=== PATIENT | male | born 1935 | race Caucasian/White ===

== ENCOUNTER 2016-07-01 10:45 | Inpatient (IN) | payer MEDICARE, BC ==
[2016-07-01] MEDS ORDERED: Sodium Chloride 0.9% 500 ML IV SCH (11:00)
--- NOTE | 2016-07-01 11:11 | EDM.PDOC ---
ED HPI GENERAL MEDICAL PROBLEM - General Chief Complaint: Neurological Problem Stated Complaint: POSSIBLE STROKE Time Seen by Provider: 07/01/16 11:11 Source of Information: Reports: Patient - History of Present Illness INITIAL COMMENTS - FREE TEXT/NARRATIVE: HISTORY AND PHYSICAL: History of present illness: [] Patient presents via ambulance with history of strokelike symptoms this morning Patient was last seen with normal baseline function at 6 PM last night, he went to bed and slept until 9 AM this morning, after getting up to go to the bathroom around 9:15 is noted to be generally weak requiring assistance with his home care manager, family and home care manager noted a difference in typewriter mechanic strength right greater than left on the upper extremities, as well as drooling out of the right corner of his mouth. On arrival to the ER strength is 5 out of 5 there is no drooling and patient appears to be at baseline outside of generalized weakness No fever nausea vomiting chills sweats no chest pain shortness breath headache dizziness or palpitation His family notes that he has had some delirium on a couple of episodes over the last week Previous history of stroke, and home care manager Family is considering fci placement Review of systems: As per history of present illness and below otherwise all systems reviewed and negative. Past medical history: As per history of present illness and as reviewed below otherwise noncontributory. Surgical history: As per history of present illness and as reviewed below otherwise noncontributory. Social history: No reported history of drug or alcohol abuse. Family history: As per history of present illness and as reviewed below otherwise noncontributory. Physical exam: HEENT: Atraumatic, normocephalic, pupils reactive, negative for conjunctival pallor or scleral icterus, mucous membranes moist, throat clear, neck supple, nontender, trachea midline. Lungs: Clear to auscultation, breath sounds equal bilaterally, chest nontender. Heart: S1S2, regular, negative for clicks, rubs, or JVD. Abdomen: Soft, nondistended, nontender. Negative for masses or hepatosplenomegaly. Negative for costovertebral tenderness. Pelvis: Stable nontender. Genitourinary: Deferred. Rectal: Deferred. Extremities: Atraumatic, negative for cords or calf pain. Neurovascular unremarkable. Neuro: Awake, alert, oriented. Cranial nerves II through XII unremarkable. Cerebellum unremarkable. Motor and sensory unremarkable throughout. Exam nonfocal. Diagnostics: [] Lab as below EKG Chest one view Head CT without contrast Therapeutics: [] 500 cc normal saline bolus Impression: [] Strokelike symptoms Chronic history of baseline Definitive disposition and diagnosis as appropriate pending reevaluation and review of above. - Related Data Allergies Allergy/AdvReac Type Severity Reaction Status Date / Time No Known Allergies Allergy Verified 07/01/16 10:55 Home Meds: Home Meds Aspirin 81 mg PO DAILY 01/12/16 [History] Enalapril Maleate 20 mg PO BID 01/12/16 [History] Hydrochlorothiazide 25 mg PO DAILY 01/12/16 [History] Metoprolol Tartrate 50 mg PO Q12H 01/12/16 [History] Multivitamins [Tab-A-Piero] 1 tab PO DAILY 01/12/16 [History] Simvastatin [Zocor] 10 mg PO BEDTIME 01/12/16 [History] levETIRAcetam [Keppra] 500 mg PO BID 01/12/16 [History] Past Medical History HEENT History: Reports: Hard of hearing Cardiovascular History: Reports: CAD, High cholesterol, Hypertension Respiratory History: Reports: None Gastrointestinal History: Reports: None Genitourinary History: Reports: None Musculoskeletal History: Reports: None Neurological History: Reports: CVA, Seizure Other Neuro History: 2 strokes. Most recent in 2010. Psychiatric History: Reports: None Endocrine/Metabolic History: Reports: None Dermatologic History: Reports: None - Infectious Disease History Infectious Disease History: Reports: Chicken pox, Measles, Shingles - Past Surgical History Cardiovascular Surgical History: Reports: Coronary artery bypass Social & Family History - Family History Family Medical History: Noncontributory - Tobacco Use Smoking Status *Q: Never Smoker Used Tobacco, but Quit: No Second Hand Smoke Exposure: Yes - Caffeine Use Caffeine Use: Reports: Coffee - Recreational Drug Use Recreational Drug Use: No ED ROS GENERAL - Review of Systems Review Of Systems: ROS reveals no pertinent complaints other than HPI. ED EXAM, GENERAL - Physical Exam Exam: See Below Course - Vital Signs Last Recorded V/S: Last Vital Signs Temp 36.1 C 07/01/16 10:56 Pulse 56 L 07/01/16 11:41 Resp 17 07/01/16 11:41 BP 127/61 07/01/16 11:41 Pulse Ox 98 07/01/16 11:41 - Orders/Labs/Meds Orders: Active Orders 24 hr Category Date Time Status Admission Diagnosis [ADT] Stat ADT 07/01/16 12:44 Ordered Chest 1V Frontal [CR] Stat Exams 07/01/16 10:56 Taken Head wo Cont [CT] Stat Exams 07/01/16 10:56 Taken Sodium Chloride 0.9% [Normal Saline] 500 ml Med 07/01/16 11:00 Active IV STAT Medication Orders Sodium Chloride (Normal Saline) 500 mls @ 999 mls/hr IV STAT BIANKA Last Admin: 07/01/16 11:44 Dose: 999 mls/hr Labs: Laboratory Tests 07/01/16 07/01/16 07/01/16 Range/Units 11:17 11:17 11:17 WBC 9.10 (4.0-11.0) K/uL RBC 4.66 (4.50-5.90) M/uL Hgb 14.4 (13.0-17.0) g/dL Hct 42.6 (38.0-50.0) % MCV 91.4 (80.0-98.0) fL MCH 30.9 (27.0-32.0) pg MCHC 33.8 (31.0-37.0) g/dL RDW Std Deviation 45.4 (28.0-62.0) fl RDW Coeff of Kera 14 (11.0-15.0) % Plt Count 134 L (150-400) K/uL MPV 9.50 (7.40-12.00) fL Neut % (Auto) 71.2 (48.0-80.0) % Lymph % (Auto) 16.2 (16.0-40.0) % [facility] % (Auto) 11.5 (0.0-15.0) % Eos % (Auto) 0.9 (0.0-7.0) % Baso % (Auto) 0.2 (0.0-1.5) % Neut # (Auto) 6.5 H (1.4-5.7) K/uL Lymph # (Auto) 1.5 (0.6-2.4) K/uL [facility] # (Auto) 1.1 H (0.0-0.8) K/uL Eos # (Auto) 0.1 (0.0-0.7) K/uL Baso # (Auto) 0.0 (0.0-0.1) K/uL Nucleated RBC % 0.0 /100WBC Nucleated RBCs # 0 K/uL INR 0.98 (0.86-1.11) Sodium 136 (136-146) mmol/L Potassium 4.7 (3.5-5.1) mmol/L Chloride 106 (98-110) mmol/L Carbon Dioxide 20 L (21-31) mmol/L BUN 27 H (6.0-23.0) mg/dL Creatinine 1.7 H (0.6-1.5) mg/dL Est Cr Clr Drug Dosing 34.92 mL/min Estimated GFR (MDRD) 38.7 ml/min Glucose 91 (60-110) mg/dL Calcium 9.9 (8.8-10.8) mg/dL Total Bilirubin 1.2 (0.1-1.5) mg/dL AST 20 (5-40) IU/L ALT 21 (8-54) IU/L Alkaline Phosphatase 63 (40-150) Troponin I (0.0-0.29) NG/ML Total Protein 6.8 (6.0-8.0) g/dL Albumin 4.5 (3.4-4.8) g/dL Globulin 2.3 (2.0-3.5) g/dL Albumin/Globulin Ratio 2.0 (1.3-2.8) Urine Color Urine Appearance Urine pH (5.0-8.0) Ur Specific [place] (1.001-1.035) Urine Protein (NEGATIVE) mg/dL Urine Glucose (UA) (NEGATIVE) mg/dL Urine Ketones (NEGATIVE) mg/dL Urine Occult Blood (NEGATIVE) Urine Nitrite (NEGATIVE) Urine Bilirubin (NEGATIVE) Urine Urobilinogen (<2.0) EU/dL Ur Leukocyte Esterase (NEGATIVE) Urine RBC (0-2/HPF) Urine WBC (0-5/HPF) Ur Epithelial Cells (NONE-FEW) Urine Bacteria (NEGATIVE) 07/01/16 07/01/16 Range/Units 11:17 11:30 WBC (4.0-11.0) K/uL RBC (4.50-5.90) M/uL Hgb (13.0-17.0) g/dL Hct (38.0-50.0) % MCV (80.0-98.0) fL MCH (27.0-32.0) pg MCHC (31.0-37.0) g/dL RDW Std Deviation (28.0-62.0) fl RDW Coeff of [place] (11.0-15.0) % Plt Count (150-400) K/uL MPV (7.40-12.00) fL Neut % (Auto) (48.0-80.0) % Lymph % (Auto) (16.0-40.0) % [facility] % (Auto) (0.0-15.0) % Eos % (Auto) (0.0-7.0) % Baso % (Auto) (0.0-1.5) % Neut # (Auto) (1.4-5.7) K/uL Lymph # (Auto) (0.6-2.4) K/uL [facility] # (Auto) (0.0-0.8) K/uL Eos # (Auto) (0.0-0.7) K/uL Baso # (Auto) (0.0-0.1) K/uL Nucleated RBC % /100WBC Nucleated RBCs # K/uL INR (0.86-1.11) Sodium (136-146) mmol/L Potassium (3.5-5.1) mmol/L Chloride (98-110) mmol/L Carbon Dioxide (21-31) mmol/L BUN (6.0-23.0) mg/dL Creatinine (0.6-1.5) mg/dL Est Cr Clr Drug Dosing mL/min Estimated GFR (MDRD) ml/min Glucose (60-110) mg/dL Calcium (8.8-10.8) mg/dL Total Bilirubin (0.1-1.5) mg/dL AST (5-40) IU/L ALT (8-54) IU/L Alkaline Phosphatase (40-150) Troponin I < 0.10 (0.0-0.29) NG/ML Total Protein (6.0-8.0) g/dL Albumin (3.4-4.8) g/dL Globulin (2.0-3.5) g/dL Albumin/Globulin Ratio (1.3-2.8) Urine Color YELLOW Urine Appearance HAZY Urine pH 6.0 (5.0-8.0) Ur Specific [place] 1.015 (1.001-1.035) Urine Protein NEGATIVE (NEGATIVE) mg/dL Urine Glucose (UA) NEGATIVE (NEGATIVE) mg/dL Urine Ketones NEGATIVE (NEGATIVE) mg/dL Urine Occult Blood LARGE H (NEGATIVE) Urine Nitrite NEGATIVE (NEGATIVE) Urine Bilirubin NEGATIVE (NEGATIVE) Urine Urobilinogen 0.2 (<2.0) EU/dL Ur Leukocyte Esterase NEGATIVE (NEGATIVE) Urine RBC 45-50 (0-2/HPF) Urine WBC 1-2 (0-5/HPF) Ur Epithelial Cells RARE (NONE-FEW) Urine Bacteria FEW (NEGATIVE) Meds: Medications Generic Name Dose Route Start Last Admin Trade Name Freq PRN Reason Stop Dose Admin Sodium Chloride 500 mls @ 999 mls/hr 07/01/16 11:00 07/01/16 11:44 Normal Saline IV 999 mls/hr STAT BIANKA Administration Departure - Departure Time of Disposition: 12:44 Disposition: Admitted As Inpatient 64 Condition: fair Clinical Impression: TIA (transient ischemic attack) Forms: ED Department Discharge - My Orders Last 24 Hours: My Active Orders 07/01/16 10:56 Chest 1V Frontal [CR] Stat Head wo Cont [CT] Stat 07/01/16 11:00 Sodium Chloride 0.9% [Normal Saline] 500 ml IV STAT 07/01/16 12:44 Admission Diagnosis [ADT] Stat - Assessment/Plan Last 24 Hours: My Active Orders 07/01/16 10:56 Chest 1V Frontal [CR] Stat Head wo Cont [CT] Stat 07/01/16 11:00 Sodium Chloride 0.9% [Normal Saline] 500 ml IV STAT 07/01/16 12:44 Admission Diagnosis [ADT] Stat
--- NOTE | 2016-07-01 13:18 | PCM.HP ---
H&P History of Present Illness - General Date of Service: 07/01/16 Admit Problem/Dx: Admission Diagnosis/Problem Admission Diagnosis/Problem TIA, Transient ischemic attack Source of Information: Patient, EMS, EMS notes reviewed History Limitations: Reports: Altered mental status, Other (hard of hearing) - History of Present Illness Initial Comments - Free Text/Narative: The patient is an 81-year-old gentleman who is presented to the emergency department with possible stroke and he is admitted today for inpatient management. The patient was noted be at his normal baseline 14 hours prior to presentation in the emergency department. The patient is somewhat of a poor historian therefore information has been taken from the emergency medical record and family members are not available. He was noted by the family members upon arousing the patient at 9 a.m. he was having difficulty with weakness and drooling of the right corner of his mouth. Patient has a history of prior stroke. Interestingly, ER reports that the patient had been hallucinating and had some delirium while at home. The patient today is not entirely sure why he is here other than saying that he has been feeling very weak. The patient has denied any pain. He has had no dizziness or lightheadedness. He is very hard of hearing. Apparently while at home his family members have been getting the patient up to walk every 2 hours and a been unable to do this today. The patient himself has no complaints today. Onset of Symptoms: Reports: unknown/unsure Symptom Onset Date: 06/30/16 Duration of Symptoms: Reports: Day(s):, Improving Location: Reports: generalized Quality: Denies: Ache, Burning Severity: mild Improves with: Reports: None Worsens with: Reports: None Context: Reports: sick contact Associated Symptoms: Reports: no other symptoms - Related Data Allergies/Adverse Reactions: Allergies Allergy/AdvReac Type Severity Reaction Status Date / Time No Known Allergies Allergy Verified 07/01/16 10:55 Home Medications: Home Meds Aspirin 81 mg PO DAILY 01/12/16 [History] Enalapril Maleate 20 mg PO BID 01/12/16 [History] Hydrochlorothiazide 25 mg PO DAILY 01/12/16 [History] Metoprolol Tartrate 50 mg PO Q12H 01/12/16 [History] Multivitamins [Tab-A-Piero] 1 tab PO DAILY 01/12/16 [History] Simvastatin [Zocor] 10 mg PO BEDTIME 01/12/16 [History] levETIRAcetam [Keppra] 500 mg PO BID 01/12/16 [History] Past Medical History HEENT History: Reports: Hard of hearing Cardiovascular History: Reports: Bypass, CAD, High cholesterol, Hypertension Respiratory History: Reports: None Gastrointestinal History: Reports: None Genitourinary History: Reports: None Musculoskeletal History: Reports: None Neurological History: Reports: CVA, Seizure Other Neuro History: 2 strokes. Most recent in 2010. Psychiatric History: Reports: None Endocrine/Metabolic History: Reports: None Dermatologic History: Reports: None - Infectious Disease History Infectious Disease History: Reports: Chicken pox, Measles, Shingles - Past Surgical History Cardiovascular Surgical History: Reports: Coronary artery bypass Social & Family History - Family History Family Medical History: Noncontributory - Tobacco Use Smoking Status *Q: Never Smoker Used Tobacco, but Quit: No Second Hand Smoke Exposure: Yes - Caffeine Use Caffeine Use: Reports: Coffee - Alcohol Use Alcohol Use History: No - Recreational Drug Use Recreational Drug Use: No H&P Review of Systems - Review of Systems: Review Of Systems: Unable To Obtain (poor historian) Exam - Exam Exam: See Below - Vital Signs Vital Signs: Last Vital Signs Temp 36.1 C 07/01/16 10:56 Pulse 56 L 07/01/16 11:41 Resp 17 07/01/16 11:41 BP 127/61 07/01/16 11:41 Pulse Ox 98 07/01/16 11:41 Weight: 82.9 kg - Exam Quality Assessment: supplemental oxygen General: oriented. No: alert HEENT: Conjunctiva clear, Pupils equal, Pupils reactive. No: Mucosa moist & pink Neck: supple, trachea midline Lungs: Clear to auscultation, Normal respiratory effort Cardiovascular: regular rate, regular rhythm Abdomen: normal bowel sounds, soft Extremities: normal inspection. No: edema Skin: warm, dry, intact Neurological: cranial nerves intact, strength equal bilateral. No: focal deficit Neuro Extensive - Mental Status: oriented x3, normal mood/affect, disorientation to time, nl response to commands, opens eyes to commands. No: alert Neuro Extensive - Motor, Sensory, Reflexes: CN II-XII intact. No: tongue deviation (L), tongue deviation (R), receptive aphasia, expressive aphasia Psychiatric: normal affect. No: alert - Patient Data Lab Results last 24 hrs: Laboratory Results - last 24 hr 07/01/16 07/01/16 07/01/16 Range/Units 11:17 11:17 11:17 WBC 9.10 (4.0-11.0) K/uL RBC 4.66 (4.50-5.90) M/uL Hgb 14.4 (13.0-17.0) g/dL Hct 42.6 (38.0-50.0) % MCV 91.4 (80.0-98.0) fL MCH 30.9 (27.0-32.0) pg MCHC 33.8 (31.0-37.0) g/dL RDW Std Deviation 45.4 (28.0-62.0) fl RDW Coeff of Kera 14 (11.0-15.0) % Plt Count 134 L (150-400) K/uL MPV 9.50 (7.40-12.00) fL Neut % (Auto) 71.2 (48.0-80.0) % Lymph % (Auto) 16.2 (16.0-40.0) % [place] % (Auto) 11.5 (0.0-15.0) % Eos % (Auto) 0.9 (0.0-7.0) % Baso % (Auto) 0.2 (0.0-1.5) % Neut # (Auto) 6.5 H (1.4-5.7) K/uL Lymph # (Auto) 1.5 (0.6-2.4) K/uL [place] # (Auto) 1.1 H (0.0-0.8) K/uL Eos # (Auto) 0.1 (0.0-0.7) K/uL Baso # (Auto) 0.0 (0.0-0.1) K/uL Nucleated RBC % 0.0 /100WBC Nucleated RBCs # 0 K/uL INR 0.98 (0.86-1.11) Sodium 136 (136-146) mmol/L Potassium 4.7 (3.5-5.1) mmol/L Chloride 106 (98-110) mmol/L Carbon Dioxide 20 L (21-31) mmol/L BUN 27 H (6.0-23.0) mg/dL Creatinine 1.7 H (0.6-1.5) mg/dL Est Cr Clr Drug Dosing 34.92 mL/min Estimated GFR (MDRD) 38.7 ml/min Glucose 91 (60-110) mg/dL Calcium 9.9 (8.8-10.8) mg/dL Total Bilirubin 1.2 (0.1-1.5) mg/dL AST 20 (5-40) IU/L ALT 21 (8-54) IU/L Alkaline Phosphatase 63 (40-150) Troponin I (0.0-0.29) NG/ML Total Protein 6.8 (6.0-8.0) g/dL Albumin 4.5 (3.4-4.8) g/dL Globulin 2.3 (2.0-3.5) g/dL Albumin/Globulin Ratio 2.0 (1.3-2.8) Urine Color Urine Appearance Urine pH (5.0-8.0) Ur Specific [place] (1.001-1.035) Urine Protein (NEGATIVE) mg/dL Urine Glucose (UA) (NEGATIVE) mg/dL Urine Ketones (NEGATIVE) mg/dL Urine Occult Blood (NEGATIVE) Urine Nitrite (NEGATIVE) Urine Bilirubin (NEGATIVE) Urine Urobilinogen (<2.0) EU/dL Ur Leukocyte Esterase (NEGATIVE) Urine RBC (0-2/HPF) Urine WBC (0-5/HPF) Ur Epithelial Cells (NONE-FEW) Urine Bacteria (NEGATIVE) 07/01/16 07/01/16 Range/Units 11:17 11:30 WBC (4.0-11.0) K/uL RBC (4.50-5.90) M/uL Hgb (13.0-17.0) g/dL Hct (38.0-50.0) % MCV (80.0-98.0) fL MCH (27.0-32.0) pg MCHC (31.0-37.0) g/dL RDW Std Deviation (28.0-62.0) fl RDW Coeff of Kera (11.0-15.0) % Plt Count (150-400) K/uL MPV (7.40-12.00) fL Neut % (Auto) (48.0-80.0) % Lymph % (Auto) (16.0-40.0) % [place] % (Auto) (0.0-15.0) % Eos % (Auto) (0.0-7.0) % Baso % (Auto) (0.0-1.5) % Neut # (Auto) (1.4-5.7) K/uL Lymph # (Auto) (0.6-2.4) K/uL [place] # (Auto) (0.0-0.8) K/uL Eos # (Auto) (0.0-0.7) K/uL Baso # (Auto) (0.0-0.1) K/uL Nucleated RBC % /100WBC Nucleated RBCs # K/uL INR (0.86-1.11) Sodium (136-146) mmol/L Potassium (3.5-5.1) mmol/L Chloride (98-110) mmol/L Carbon Dioxide (21-31) mmol/L BUN (6.0-23.0) mg/dL Creatinine (0.6-1.5) mg/dL Est Cr Clr Drug Dosing mL/min Estimated GFR (MDRD) ml/min Glucose (60-110) mg/dL Calcium (8.8-10.8) mg/dL Total Bilirubin (0.1-1.5) mg/dL AST (5-40) IU/L ALT (8-54) IU/L Alkaline Phosphatase (40-150) Troponin I < 0.10 (0.0-0.29) NG/ML Total Protein (6.0-8.0) g/dL Albumin (3.4-4.8) g/dL Globulin (2.0-3.5) g/dL Albumin/Globulin Ratio (1.3-2.8) Urine Color YELLOW Urine Appearance HAZY Urine pH 6.0 (5.0-8.0) Ur Specific [place] 1.015 (1.001-1.035) Urine Protein NEGATIVE (NEGATIVE) mg/dL Urine Glucose (UA) NEGATIVE (NEGATIVE) mg/dL Urine Ketones NEGATIVE (NEGATIVE) mg/dL Urine Occult Blood LARGE H (NEGATIVE) Urine Nitrite NEGATIVE (NEGATIVE) Urine Bilirubin NEGATIVE (NEGATIVE) Urine Urobilinogen 0.2 (<2.0) EU/dL Ur Leukocyte Esterase NEGATIVE (NEGATIVE) Urine RBC 45-50 (0-2/HPF) Urine WBC 1-2 (0-5/HPF) Ur Epithelial Cells RARE (NONE-FEW) Urine Bacteria FEW (NEGATIVE) Result Diagrams: 07/01/16 11:17 07/01/16 11:17 *Q Meaningful Use (ADM) - VTE *Q VTE Criteria *Q: VTE Mechanical Contraindications *Q: Confused Consciousness VTE Pharmacological Contraindications *Q: Renal Impairment - VTE Risk Assess *Q Each Risk Factor Represents 3 Points: Age 75 Years or Greater Total Score 3 Point Risk Factors: 3 Each Risk Factor Represents 5 Points: Stroke, Less than 1 Month Total Score 5 Point Risk Factors: 5 - Stroke *Q Stroke Criteria *Q: Thrombolytic/Fibrinolytic Contraindications Stroke *Q: Med/tx not indicated/need - AMI *Q AMI Criteria *Q: - Problem List (1) TIA (transient ischemic attack) SNOMED Code(s): 729653791, 649424580 ICD Code: G45.9 - TRANSIENT CEREBRAL ISCHEMIC ATTACK, UNSPECIFIED Status: Acute Priority: High Current Visit: Yes Qualifiers: Transient cerebral ischemia type: unspecified Qualified Code(s): G45.9 - Transient cerebral ischemic attack, unspecified (2) Gait instability SNOMED Code(s): 23331133, 522698213 ICD Code: R26.81 - UNSTEADINESS ON FEET Status: Chronic Priority: High Current Visit: Yes (3) Generalized weakness SNOMED Code(s): 60878082 ICD Code: R53.1 - WEAKNESS Status: Chronic Priority: High Current Visit : Yes (4) History of CVA (cerebrovascular accident) SNOMED Code(s): 342451961 ICD Code: Z86.73 - PRSNL HX OF TIA (TIA), AND CEREB INFRC W/O RESID DEFICITS Status: Chronic Priority: Medium Current Visit: Yes (5) Altered mental status SNOMED Code(s): 370522453 ICD Code: R41.82 - ALTERED MENTAL STATUS, UNSPECIFIED Status: Chronic Priority: Medium Current Visit: No Qualifiers: Altered mental status type: disorientation Qualified Code(s): R41.0 - Disorientation, unspecified (6) Acute worsening of stage 3 chronic kidney disease SNOMED Code(s): 894637512 ICD Code: N18.3 - CHRONIC KIDNEY DISEASE, STAGE 3 (MODERATE) Status: Chronic Priority: High Current Visit: Yes (7) Hematuria SNOMED Code(s): 78211549 ICD Code: R31.9 - HEMATURIA, UNSPECIFIED Status: Chronic Priority: Medium Current Visit: Yes Problem List Initiated/Reviewed/Updated: Yes Orders Last 24hrs: Active Orders 24 hr Category Date Time Status Admission Diagnosis [ADT] Stat ADT 07/01/16 12:44 Ordered Admission Status [Patient Status] [ADT] Stat ADT 07/01/16 12:45 Active Chest 1V Frontal [CR] Stat Exams 07/01/16 10:56 Taken Head wo Cont [CT] Stat Exams 07/01/16 10:56 Taken Sodium Chloride 0.9% [Normal Saline] 500 ml Med 07/01/16 11:00 Active IV STAT Medication Orders Sodium Chloride (Normal Saline) 500 mls @ 999 mls/hr IV STAT BIANKA Last Admin: 07/01/16 11:44 Dose: 999 mls/hr Assessment/Plan Comment:: Jul 01, 2016: The patient is an 81-year-old gentleman who will be admitted as an inpatient secondary to TIA as well as physical deconditioning with gait abnormality. The patient also has evidence of acute on chronic kidney disease which is going to influence his medications. Also is noted on emergency room laboratory studies to have thrombocytopenia with a mild decrease of the thrombocytes to 134,000. Patient was also noted to have hematuria with 40-50 RBCs per high-powered field. It's uncertain if this is new or chronic. Regardless is something should be followed very closely as an outpatient. He does have hematuria would like to avoid DVT prophylaxis with Lovenox or heparin. Mechanical SCDs will be recommended. It's uncertain what the patient's CODE STATUS is at this time however, he will be for now CODE STATUS one. Physical therapy will be ordered for the patient. I've also ordered further testing for the patient in the morning and the patient's treatment plan will be adjusted as conditions and information indicates.
[2016-07-01] MEDS ORDERED: Ondansetron 4 MG Tab.DIS PO PRN (13:36)
[2016-07-01] MEDS ORDERED: Temazepam 15 MG Cap PO PRN (13:36)
[2016-07-01] MEDS ORDERED: oxyCODONE 5 MG Tab PO PRN (13:36)
[2016-07-01] MEDS ORDERED: Acetaminophen 325 MG Tab PO PRN (13:36)
[2016-07-01] MEDS: Sodium Chloride 0.9% 1,000 ML IV SCH (14:31)
[2016-07-01] MEDS: Metoprolol Tartrate 50 MG Tab PO SCH (15:16)
--- NOTE | 2016-07-01 16:14 | CT ---
EXAM DATE: 07/01/16 PATIENT'S AGE: 81 Patient: CLARA TORRES Facility: [place], [place] Site . Site : 1935 Study: CT Head STROKE PROTOCOL [id number]/27/2017 11:11:42 AM Ordering Physician: Doctor Tavares Final Report: HISTORY: Weakness. TECHNIQUE: Noncontrast head CT. COMPARISON: 02/24/2016. FINDINGS: There is an area of encephalomalacia involving the right parietal lobe which is unchanged and likely relates to a remote infarct. Areas of white matter low attenuation are nonspecific but likely reflect sequelae of chronic small vessel ischemic changes as before. Areas of remote lacunar infarction are again noted involving the basal ganglia, unchanged. There is mild generalized cerebral and cerebellar volume loss. There is no acute ischemic infarct or acute intracranial hemorrhage. No mass effect or midline shift. Stable ventricular size. The mastoid air cells are clear. Paranasal sinuses are clear. No skull fracture. IMPRESSION: 1. No acute intracranial disease or significant change. 2. Area of chronic encephalomalacia involving the right parietal lobe likely relates to a remote infarct, unchanged. 3. Mild chronic small vessel ischemic changes and areas of remote lacunar infarction as before. 4. Report called and faxed on 07/01/2016 at 11:20 a.m. Dictated by Olayinka Mcginnis MD @ 07/01/2016 11:16:13 AM Dictated by: Olayinka Mcginnis MD @ 07/01/2016 11:16:55 (Electronic Signature) Report Signed by Proxy. YAO
--- NOTE | 2016-07-01 16:16 | CR ---
EXAM DATE: 07/01/16 PATIENT'S AGE: 81 Patient: CLARA TORRES Facility: [place], [place] Site . Site : 1935 Study: XRay Chest [id number]/27/2017 12:17:25 PM Ordering Physician: Doctor Tavares Final Report: INDICATION: Stroke Symptoms HISTORY: Stroke-like symptoms. COMPARISON: 02/24/2016. TECHNIQUE: Chest one-view portable upright. FINDINGS: Postoperative changes of a median sternotomy. There are low lung volumes. There is no acute airspace disease. Mild elevation of the dome of the right hemidiaphragm, stable. Heart size and pulmonary vasculature are normal. hr consultant leads overlie the patient. There are surgical clips in the left upper quadrant. IMPRESSION: Low lung volumes, but no acute airspace disease. Dictated by Joselo Gavin MD @ 07/01/2016 12:45:03 PM Dictated by: Joselo Gavin MD @ 07/01/2016 12:45:09 (Electronic Signature) Report Signed by Proxy. [facility]Prince
[2016-07-01] MEDS: levETIRAcetam 500 MG Tab PO SCH (20:51)
[2016-07-02] MEDS: Metoprolol Tartrate 50 MG Tab PO SCH ×2 (00:51→13:46)
[2016-07-02] MEDS: Sodium Chloride 0.9% 1,000 ML IV SCH ×2 (03:15→16:34)
[2016-07-02] MEDS: Hydrochlorothiazide 25 MG Tab PO SCH (09:43)
[2016-07-02] MEDS: Aspirin 81 MG Tab.Chew PO SCH (09:43)
[2016-07-02] MEDS: levETIRAcetam 500 MG Tab PO SCH ×2 (10:40→20:42)
--- NOTE | 2016-07-02 11:09 | PCM.PN ---
<Phillip Horta - Last Filed: 07/02/16 11:05> - General Info Date of Service: 07/02/16 Admission Dx/Problem (Free Text): Admission Diagnosis/Problem Admission Diagnosis/Problem TIA, Transient ischemic attack Subjective Update: Patient is doing well. He passed his swallow evaluation this morning he can have his diet advanced. The patient reports no pain or other concerns this morning. He seems to be resting comfortably. Functional Status: Reports: pain controlled, tolerating diet - Review of Systems General: Reports: No Symptoms HEENT: Reports: no symptoms Pulmonary: Reports: no symptoms Cardiovascular: Reports: No Symptoms Gastrointestinal: Reports: No symptoms Genitourinary: Reports: no symptoms Musculoskeletal: Reports: no symptoms Skin: Reports: no symptoms Neurological: Reports: Difficulty Walking, Weakness Psychiatric: Reports: no symptoms - Patient Data Vitals - most recent: Last Vital Signs Temp 97.0 F 07/02/16 07:52 Pulse 60 07/02/16 07:52 Resp 16 07/02/16 07:52 BP 133/63 07/02/16 09:43 Pulse Ox 97 07/02/16 07:52 Weight - most recent: 71 kg I&O - last 24 hours: Intake & Output 07/01/16 07/02/16 07/02/16 22:59 06:59 14:59 Intake Total 188 1188 Output Total 600 670 Balance -412 518 Lab Results last 24 hrs: Laboratory Results - last 24 hr 07/02/16 07/02/16 Range/Units 04:42 04:42 WBC 8.26 (4.0-11.0) K/uL RBC 4.54 (4.50-5.90) M/uL Hgb 14.3 (13.0-17.0) g/dL Hct 41.1 (38.0-50.0) % MCV 90.5 (80.0-98.0) fL MCH 31.5 (27.0-32.0) pg MCHC 34.8 (31.0-37.0) g/dL RDW Std Deviation 43.2 (28.0-62.0) fl RDW Coeff of Kera 14 (11.0-15.0) % Plt Count 102 L (150-400) K/uL MPV 9.80 (7.40-12.00) fL Add Manual Diff YES Neutrophils % (Manual) 59 (48.0-80.0) % Lymphocytes % (Manual) 22 (16.0-40.0) % Monocytes % (Manual) 18 H (0.0-15.0) % Metamyelocytes % 1 % Absolute Seg Neuts 4.9 Lymphocytes # (Manual) 1.8 Monocytes # (Manual) 1.5 Absolute Metamyelocyte 0.1 Sodium 137 (136-146) mmol/L Potassium 5.1 (3.5-5.1) mmol/L Chloride 108 (98-110) mmol/L Carbon Dioxide 18 L (21-31) mmol/L BUN 21 (6.0-23.0) mg/dL Creatinine 1.3 (0.6-1.5) mg/dL Est Cr Clr Drug Dosing 43.24 mL/min Estimated GFR (MDRD) 52.7 ml/min Glucose 81 (60-110) mg/dL Calcium 9.6 (8.8-10.8) mg/dL Phosphorus 3.5 (2.4-4.7) mg/dL Magnesium 2.1 (1.5-2.3) mEq/L Total Bilirubin 1.5 (0.1-1.5) mg/dL AST 30 (5-40) IU/L ALT 21 (8-54) IU/L Alkaline Phosphatase 57 (40-150) Total Protein 6.7 (6.0-8.0) g/dL Albumin 4.2 (3.4-4.8) g/dL Globulin 2.5 (2.0-3.5) g/dL Albumin/Globulin Ratio 1.7 (1.3-2.8) Med Orders - Current: Current Medications Acetaminophen (Tylenol) 650 mg PO Q4H PRN PRN Reason: Pain (Mild 1-3)/fever Aspirin (Aspirin) 81 mg PO DAILY [facility] Last Admin: 07/02/16 09:43 Dose: 81 mg Enalapril Maleate (Vasotec) 20 mg PO BID [facility] Last Admin: 07/02/16 09:43 Dose: 20 mg Hydrochlorothiazide (Hydrochlorothiazide) 25 mg PO DAILY [facility] Last Admin: 07/02/16 09:43 Dose: 25 mg Sodium Chloride (Normal Saline) 500 mls @ 999 mls/hr IV STAT [facility] Last Admin: 04/27/17 11:44 Dose: 999 mls/hr Sodium Chloride (Normal Saline) 1,000 mls @ 75 mls/hr IV ASDIRECTED [facility] Last Admin: 07/02/16 03:15 Dose: 75 mls/hr Levetiracetam (Keppra) 500 mg PO BID [facility] Last Admin: 07/02/16 10:40 Dose: 500 mg Metoprolol Tartrate (Lopressor) 50 mg PO Q12H [facility] Last Admin: 07/02/16 00:51 Dose: 50 mg Ondansetron HCl (Zofran Odt) 4 mg PO Q4H PRN PRN Reason: nausea, able to take PO Oxycodone HCl (Oxycodone) 5 mg PO Q4H PRN PRN Reason: Pain (moderate 4-6) Pneumococcal Polyvalent Vaccine (Pneumovax 23) 0.5 ml IM .ONCE ONE Stop: 07/08/16 00:00 Temazepam (Restoril) 15 mg PO BEDTIME PRN PRN Reason: Sleep - Exam Quality Assessment: DVT prophylaxis (scd's) General: alert, cooperative, no acute distress, other (Resting comfortably in bed) Lungs: Clear to auscultation, Normal respiratory effort Cardiovascular: Regular Rate, Regular Rhythm Abdomen: bowel sounds present, soft, no tenderness, no distension Extremities: no edema, no calf tenderness Peripheral Pulses: 2+: radial (L), radial (R) Skin: warm, dry, intact Neurological: no new focal deficit Psy/Mental Status: alert - Problem List & Annotations (1) TIA (transient ischemic attack) SNOMED Code(s): 922425304, 678719485 Code(s): G45.9 - TRANSIENT CEREBRAL ISCHEMIC ATTACK, UNSPECIFIED Status: Acute Priority: High Current Visit: Yes Qualifiers: Transient cerebral ischemia type: unspecified Qualified Code(s): G45.9 - Transient cerebral ischemic attack, unspecified (2) Hematuria SNOMED Code(s): 74006508 Code(s): R31.9 - HEMATURIA, UNSPECIFIED Status: Chronic Priority: Medium Current Visit: Yes - Problem List Review Problem List Initiated/Reviewed/Updated: Yes - My Orders Last 24 Hours: My Active Orders 07/01/16 14:16 Consult to Physical Therapy [PT Evaluation and Treatment] [CONS] Routine - Plan Plan:: #1. TIA: -Head CT and chest x-ray were unremarkable. -Patient passed his swallow evaluation and will have his diet advanced to regular diet. -No new neurological deficits appreciated. #2. Acute on chronic kidney disease: -BUN and creatinine have returned within normal limits. #3. Hematuria: -This will need to be followed up as an outpatient. Social work is working on getting the patient to [facility] on July 05, 2016. <CindaJustin cancino M - Last Filed: 07/02/16 15:54> - General Info Admission Dx/Problem (Free Text): I was present with the resident during history and examination. I discussed the case with the resident and agree with the findings and plan as documented in the residents note. - Patient Data Vitals - most recent: Last Vital Signs Temp 36.2 C 07/02/16 11:56 Pulse 58 L 07/02/16 13:46 Resp 18 07/02/16 11:56 BP 142/75 H 07/02/16 11:56 Pulse Ox 98 07/02/16 11:56 I&O - last 24 hours: Intake & Output 07/02/16 07/02/16 07/02/16 06:59 14:59 22:59 Intake Total 1188 Output Total 670 Balance 518 Lab Results last 24 hrs: Laboratory Results - last 24 hr 07/02/16 07/02/16 Range/Units 04:42 04:42 WBC 8.26 (4.0-11.0) K/uL RBC 4.54 (4.50-5.90) M/uL Hgb 14.3 (13.0-17.0) g/dL Hct 41.1 (38.0-50.0) % MCV 90.5 (80.0-98.0) fL MCH 31.5 (27.0-32.0) pg MCHC 34.8 (31.0-37.0) g/dL RDW Std Deviation 43.2 (28.0-62.0) fl RDW Coeff of Kera 14 (11.0-15.0) % Plt Count 102 L (150-400) K/uL MPV 9.80 (7.40-12.00) fL Add Manual Diff YES Neutrophils % (Manual) 59 (48.0-80.0) % Lymphocytes % (Manual) 22 (16.0-40.0) % Monocytes % (Manual) 18 H (0.0-15.0) % Metamyelocytes % 1 % Absolute Seg Neuts 4.9 Lymphocytes # (Manual) 1.8 Monocytes # (Manual) 1.5 Absolute Metamyelocyte 0.1 Sodium 137 (136-146) mmol/L Potassium 5.1 (3.5-5.1) mmol/L Chloride 108 (98-110) mmol/L Carbon Dioxide 18 L (21-31) mmol/L BUN 21 (6.0-23.0) mg/dL Creatinine 1.3 (0.6-1.5) mg/dL Est Cr Clr Drug Dosing 43.24 mL/min Estimated GFR (MDRD) 52.7 ml/min Glucose 81 (60-110) mg/dL Calcium 9.6 (8.8-10.8) mg/dL Phosphorus 3.5 (2.4-4.7) mg/dL Magnesium 2.1 (1.5-2.3) mEq/L Total Bilirubin 1.5 (0.1-1.5) mg/dL AST 30 (5-40) IU/L ALT 21 (8-54) IU/L Alkaline Phosphatase 57 (40-150) Total Protein 6.7 (6.0-8.0) g/dL Albumin 4.2 (3.4-4.8) g/dL Globulin 2.5 (2.0-3.5) g/dL Albumin/Globulin Ratio 1.7 (1.3-2.8) Med Orders - Current: Current Medications Acetaminophen (Tylenol) 650 mg PO Q4H PRN PRN Reason: Pain (Mild 1-3)/fever Aspirin (Aspirin) 81 mg PO DAILY [facility] Last Admin: 07/02/16 09:43 Dose: 81 mg Enalapril Maleate (Vasotec) 20 mg PO BID [facility] Last Admin: 07/02/16 09:43 Dose: 20 mg Hydrochlorothiazide (Hydrochlorothiazide) 25 mg PO DAILY [facility] Last Admin: 07/02/16 09:43 Dose: 25 mg Sodium Chloride (Normal Saline) 500 mls @ 999 mls/hr IV STAT [facility] Last Admin: 07/01/16 11:44 Dose: 999 mls/hr Sodium Chloride (Normal Saline) 1,000 mls @ 75 mls/hr IV ASDIRECTED [facility] Last Admin: 07/02/16 03:15 Dose: 75 mls/hr Levetiracetam (Keppra) 500 mg PO BID [facility] Last Admin: 07/02/16 10:40 Dose: 500 mg Metoprolol Tartrate (Lopressor) 50 mg PO Q12H [facility] Last Admin: 07/02/16 13:46 Dose: Not Given Ondansetron HCl (Zofran Odt) 4 mg PO Q4H PRN PRN Reason: nausea, able to take PO Oxycodone HCl (Oxycodone) 5 mg PO Q4H PRN PRN Reason: Pain (moderate 4-6) Pneumococcal Polyvalent Vaccine (Pneumovax 23) 0.5 ml IM .ONCE ONE Stop: 07/08/16 00:00 Temazepam (Restoril) 15 mg PO BEDTIME PRN PRN Reason: Sleep - Problem List & Annotations (1) TIA (transient ischemic attack) SNOMED Code(s): 680623767, 291943731 Code(s): G45.9 - TRANSIENT CEREBRAL ISCHEMIC ATTACK, UNSPECIFIED Status: Acute Priority: High Current Visit: Yes Qualifiers: Transient cerebral ischemia type: unspecified Qualified Code(s): G45.9 - Transient cerebral ischemic attack, unspecified (2) Gait instability SNOMED Code(s): 73639684, 592850035 Code(s): R26.81 - UNSTEADINESS ON FEET Status: Chronic Priority: High Current Visit: Yes (3) Generalized weakness SNOMED Code(s): 36224306 Code(s): R53.1 - WEAKNESS Status: Chronic Priority: High Current Visit : Yes (4) History of CVA (cerebrovascular accident) SNOMED Code(s): 487843122 Code(s): Z86.73 - PRSNL HX OF TIA (TIA), AND CEREB INFRC W/O RESID DEFICITS Status: Chronic Priority: Medium Current Visit: Yes (5) Altered mental status SNOMED Code(s): 756937016 Code(s): R41.82 - ALTERED MENTAL STATUS, UNSPECIFIED Status: Chronic Priority: Medium Current Visit: No Qualifiers: Altered mental status type: disorientation Qualified Code(s): R41.0 - Disorientation, unspecified (6) Acute worsening of stage 3 chronic kidney disease SNOMED Code(s): 988703681 Code(s): N18.3 - CHRONIC KIDNEY DISEASE, STAGE 3 (MODERATE) Status: Chronic Priority: High Current Visit: Yes (7) Hematuria SNOMED Code(s): 62654286 Code(s): R31.9 - HEMATURIA, UNSPECIFIED Status: Chronic Priority: Medium Current Visit: Yes
[2016-07-03] MEDS: Metoprolol Tartrate 50 MG Tab PO SCH ×2 (01:54→12:49)
[2016-07-03] MEDS: Sodium Chloride 0.9% 1,000 ML IV SCH ×2 (07:14→21:46)
[2016-07-03 07:34] LABS: CHLORIDE,CL 108 mmol/L (98-110); SODIUM,NA 137 mmol/L (136-146)
[2016-07-03] MEDS: Hydrochlorothiazide 25 MG Tab PO SCH (08:36)
[2016-07-03] MEDS: levETIRAcetam 500 MG Tab PO SCH ×2 (08:36→20:25)
[2016-07-03] MEDS: Aspirin 81 MG Tab.Chew PO SCH (08:36)
[2016-07-03] MEDS ORDERED: Carboxymethylcellulose Sodium 0.5% Ophth Soln 0.4 ML UD Box of 30 EYERT SCH (14:15)
--- NOTE | 2016-07-03 14:55 | PCM.PN ---
- General Info Date of Service: 07/03/16 Admission Dx/Problem (Free Text): the patient was admitted or transient ischemic attack and worsening of his physical condition Subjective Update: Patient is doing well. He passed his swallow evaluation this morning he can have his diet advanced. The patient reports no pain or other concerns this morning. He seems to be resting comfortably. Functional Status: Reports: pain controlled, tolerating diet - Review of Systems General: Reports: Weakness, Fatigue HEENT: Reports: eye pain (dry eyes) Pulmonary: Reports: no symptoms Cardiovascular: Reports: No Symptoms Gastrointestinal: Reports: No symptoms Genitourinary: Reports: no symptoms Musculoskeletal: Reports: no symptoms Skin: Reports: no symptoms Neurological: Reports: Pre-Existing Deficit, Difficulty Walking, Weakness Psychiatric: Reports: no symptoms - Patient Data Vitals - most recent: Last Vital Signs Temp 36.2 C 07/03/16 12:00 Pulse 70 07/03/16 12:49 Resp 20 07/03/16 12:00 BP 145/80 H 07/03/16 12:49 Pulse Ox 99 07/03/16 12:00 Weight - most recent: 71 kg I&O - last 24 hours: Intake & Output 07/02/16 07/03/16 07/03/16 22:59 06:59 14:59 Intake Total 1739 200 Output Total 720 820 Balance 1019 -620 Lab Results last 24 hrs: Laboratory Results - last 24 hr 07/03/16 07/03/16 Range/Units 07:01 07:01 WBC 8.08 (4.0-11.0) K/uL RBC 4.52 (4.50-5.90) M/uL Hgb 14.3 (13.0-17.0) g/dL Hct 41.0 (38.0-50.0) % MCV 90.7 (80.0-98.0) fL MCH 31.6 (27.0-32.0) pg MCHC 34.9 (31.0-37.0) g/dL RDW Std Deviation 45.0 (28.0-62.0) fl RDW Coeff of Kera 14 (11.0-15.0) % Plt Count 110 L (150-400) K/uL MPV 9.10 (7.40-12.00) fL Neut % (Auto) 73.5 (48.0-80.0) % Lymph % (Auto) 16.5 (16.0-40.0) % [place] % (Auto) 8.4 (0.0-15.0) % Eos % (Auto) 1.5 (0.0-7.0) % Baso % (Auto) 0.1 (0.0-1.5) % Neut # (Auto) 5.9 H (1.4-5.7) K/uL Lymph # (Auto) 1.3 (0.6-2.4) K/uL [place] # (Auto) 0.7 (0.0-0.8) K/uL Eos # (Auto) 0.1 (0.0-0.7) K/uL Baso # (Auto) 0.0 (0.0-0.1) K/uL Nucleated RBC % 0.0 /100WBC Nucleated RBCs # 0 K/uL Sodium 137 (136-146) mmol/L Potassium 4.2 (3.5-5.1) mmol/L Chloride 108 (98-110) mmol/L Carbon Dioxide 20 L (21-31) mmol/L BUN 17 (6.0-23.0) mg/dL Creatinine 1.1 (0.6-1.5) mg/dL Est Cr Clr Drug Dosing 51.10 mL/min Estimated GFR (MDRD) > 60.0 ml/min Glucose 89 (60-110) mg/dL Calcium 9.4 (8.8-10.8) mg/dL Med Orders - Current: Current Medications Acetaminophen (Tylenol) 650 mg PO Q4H PRN PRN Reason: Pain (Mild 1-3)/fever Artificial Tears (Refresh Plus 0.5%) 1 each EYERT Q4H PRN PRN Reason: Dry Eyes Aspirin (Aspirin) 81 mg PO DAILY [facility] Last Admin: 07/03/16 08:36 Dose: 81 mg Enalapril Maleate (Vasotec) 20 mg PO BID [facility] Last Admin: 07/03/16 08:46 Dose: 20 mg Hydrochlorothiazide (Hydrochlorothiazide) 25 mg PO DAILY [facility] Last Admin: 07/03/16 08:36 Dose: 25 mg Sodium Chloride (Normal Saline) 500 mls @ 999 mls/hr IV STAT [facility] Last Admin: 07/01/16 11:44 Dose: 999 mls/hr Sodium Chloride (Normal Saline) 1,000 mls @ 75 mls/hr IV ASDIRECTED [facility] Last Admin: 07/03/16 07:14 Dose: 75 mls/hr Levetiracetam (Keppra) 500 mg PO BID [facility] Last Admin: 07/03/16 08:36 Dose: 500 mg Metoprolol Tartrate (Lopressor) 50 mg PO Q12H [facility] Last Admin: 07/03/16 12:49 Dose: 50 mg Ondansetron HCl (Zofran Odt) 4 mg PO Q4H PRN PRN Reason: nausea, able to take PO Oxycodone HCl (Oxycodone) 5 mg PO Q4H PRN PRN Reason: Pain (moderate 4-6) Pneumococcal Polyvalent Vaccine (Pneumovax 23) 0.5 ml IM .ONCE ONE Stop: 07/08/16 00:00 Temazepam (Restoril) 15 mg PO BEDTIME PRN PRN Reason: Sleep Discontinued Medications Artificial Tears (Refresh Plus 0.5%) 1 each EYERT BID [facility] Enalapril Maleate (Vasotec) Confirm Administered Dose 10 mg .ROUTE .STK-MED ONE Stop: 07/03/16 08:46 Last Admin: 07/03/16 08:51 Dose: Not Given - Exam Quality Assessment: No: supplemental oxygen General: alert, oriented, cooperative HEENT: Pupils equal (both eyes dry) Neck: supple, trachea midline Lungs: Clear to auscultation, Normal respiratory effort Cardiovascular: Regular Rate, Regular Rhythm Abdomen: bowel sounds present, soft. No: rebound, guarding Extremities: no edema Skin: warm, dry, intact Neurological: no new focal deficit Psy/Mental Status: alert, normal affect - Problem List & Annotations (1) TIA (transient ischemic attack) SNOMED Code(s): 717560859, 131737809 Code(s): G45.9 - TRANSIENT CEREBRAL ISCHEMIC ATTACK, UNSPECIFIED Status: Acute Priority: High Current Visit: Yes Qualifiers: Transient cerebral ischemia type: unspecified Qualified Code(s): G45.9 - Transient cerebral ischemic attack, unspecified (2) Gait instability SNOMED Code(s): 30156487, 726397381 Code(s): R26.81 - UNSTEADINESS ON FEET Status: Chronic Priority: High Current Visit: Yes (3) Generalized weakness SNOMED Code(s): 58394321 Code(s): R53.1 - WEAKNESS Status: Chronic Priority: High Current Visit : Yes (4) History of CVA (cerebrovascular accident) SNOMED Code(s): 993546354 Code(s): Z86.73 - PRSNL HX OF TIA (TIA), AND CEREB INFRC W/O RESID DEFICITS Status: Chronic Priority: Medium Current Visit: Yes (5) Altered mental status SNOMED Code(s): 073598331 Code(s): R41.82 - ALTERED MENTAL STATUS, UNSPECIFIED Status: Chronic Priority: Medium Current Visit: No Qualifiers: Altered mental status type: disorientation Qualified Code(s): R41.0 - Disorientation, unspecified (6) Acute worsening of stage 3 chronic kidney disease SNOMED Code(s): 990124263 Code(s): N18.3 - CHRONIC KIDNEY DISEASE, STAGE 3 (MODERATE) Status: Chronic Priority: High Current Visit: Yes (7) Hematuria SNOMED Code(s): 47197613 Code(s): R31.9 - HEMATURIA, UNSPECIFIED Status: Chronic Priority: Medium Current Visit: Yes - Problem List Review Problem List Initiated/Reviewed/Updated: Yes - My Orders Last 24 Hours: My Active Orders 07/03/16 14:12 Oral Care [OM.PC] Routine 07/03/16 14:15 Carboxymethylcellulose Sodium [Refresh Plus 0.5%] 1 each EYERT Q4H PRN - Plan Plan:: #1. TIA: -Head CT and chest x-ray were unremarkable. -Patient passed his swallow evaluation and will have his diet advanced to regular diet. -No new neurological deficits appreciated. #2. Acute on chronic kidney disease: -BUN and creatinine have returned within normal limits. #3. Hematuria: -This will need to be followed up as an outpatient. Social work is working on getting the patient to [facility] on July 05, 2016. Jul 03, 2016:The patient is a 81-year-old gentleman who was admitted on Jul 01, 2016 secondary to likely transient ischemic attack. The patient however has continued to remain weak and unable to ambulate more than 4 or 5 steps without assistance. The patient had a swallowing study done yesterday and he passed a swallow eval. There is no reported concerns for issues for him. The patient was resting comfortably. Family was concerned about the patient's eyes being dry and normally he had been using artificial tears. This been reordered for him. Because of the increased care that the patient has as well as his previous history of TIAs and strokes the patient has been recommended for [facility] and likely will be appropriate for discharge to [place] on Tuesday. This is an avenue that the patient's family prefers to pursue. We'll continue on the patient's current medications. The patient continues to be in a DO NOT RESUSCITATE/DO NOT INTUBATE category. He is also going to have a diet as tolerated. Patient's overall treatment plan will be adjusted as conditions and information indicates.
[2016-07-03] MEDS: Carboxymethylcellulose Sodium 0.5% Ophth Soln 0.4 ML UD Box of 30 EYERT PRN (17:03)
[2016-07-04] MEDS: Metoprolol Tartrate 50 MG Tab PO SCH ×2 (00:51→12:54)
[2016-07-04 05:28] LABS: CHLORIDE,CL 112 mmol/L (98-110); SODIUM,NA 139 mmol/L (136-146)
[2016-07-04] MEDS: Carboxymethylcellulose Sodium 0.5% Ophth Soln 0.4 ML UD Box of 30 EYERT PRN (08:17)
[2016-07-04] MEDS: Hydrochlorothiazide 25 MG Tab PO SCH (08:17)
[2016-07-04] MEDS: Aspirin 81 MG Tab.Chew PO SCH (08:17)
[2016-07-04] MEDS: levETIRAcetam 500 MG Tab PO SCH ×2 (08:17→20:01)
[2016-07-04] MEDS: Sodium Chloride 0.9% 1,000 ML IV SCH ×2 (10:45→23:17)
[2016-07-05] MEDS: Metoprolol Tartrate 50 MG Tab PO SCH ×2 (01:09→13:59)
[2016-07-05 05:57] LABS: CHLORIDE,CL 111 mmol/L (98-110); SODIUM,NA 140 mmol/L (136-146)
[2016-07-05] MEDS: Aspirin 81 MG Tab.Chew PO SCH (09:07)
[2016-07-05] MEDS: Hydrochlorothiazide 25 MG Tab PO SCH (09:08)
[2016-07-05] MEDS: levETIRAcetam 500 MG Tab PO SCH (09:10)
[2016-07-05 12:25] VITALS: BP 139/73
[2016-07-07] MEDS ORDERED: Pneumococcal Polyvalent-23 Vaccine 0.5 ML SDV IM ONE (23:59)
--- NOTE | 2016-07-08 14:09 | PCM.DCSUM1 ---
<Phillip Horta - Last Filed: 07/08/16 14:03> Discharge Summary - Hospital Course Free Text/Narrative:: Admission diagnoses: #1. Altered mental status #2. Weakness #3. Acute kidney injury #4. Thrombocytopenia with hematuria Discharge diagnoses: #1. Altered mental status, improved #2. Weakness, improved #3. Acute kidney injury, resolved #4. Thrombocytopenia with hematuria, stable 81-year-old male with a past medical history of stroke is admitted with altered mental status and generalized weakness. When patient presented to the emergency room, a stroke code was called. Patient's vital signs were stable upon presentation to the ER. Head CT and chest x-ray were unremarkable. Glucose levels were within normal limits. Oxygen saturations greater than 90% on room air. Urinalysis did show large occult blood and the patient did have thrombocytopenia on CBC. BUN and creatinine were mildly elevated which with hydration during admission did return to within normal limits. His GFR and creatinine clearance also improved with gentle IV fluid hydration. Initial troponin was negative. During admission the patient's altered mental status and generalized weakness improved to the point where he was alert and oriented x3 at the time of discharge and ambulating with assistance and working with physical therapy. Apart from the altered mental status and generalized weakness no other neurological deficits were noted upon presentation to the ER where throughout admission. Patient did pass a swallow evaluation and did resume his regular diet during admission. Patient's vital signs remained stable during admission. At the time of discharge was tolerating oral intake without any nausea, vomiting or abdominal pain. He also denied any chest pain, palpitations , shortness of breath, wheezing, cough. He was voiding appropriately. - Discharge Data Discharge Date: 07/05/16 Discharge Disposition: DC/Tfer to SNF 03 Condition: Fair - Discharge Diagnosis/Problem(s) (1) TIA (transient ischemic attack) SNOMED Code(s): 426763646, [id number] ICD Code: G45.9 - TRANSIENT CEREBRAL ISCHEMIC ATTACK, UNSPECIFIED Status: Acute Priority: High Qualifiers: Transient cerebral ischemia type: unspecified Qualified Code(s): G45.9 - Transient cerebral ischemic attack, unspecified (2) Hematuria SNOMED Code(s): 27258872 ICD Code: R31.9 - HEMATURIA, UNSPECIFIED Status: Chronic Priority: Medium - Patient Summary/Data Consults: Consultations 07/01/16 14:16 Consult to Physical Therapy [PT Evaluation and Treatment] [CONS] Routine 07/01/16 14:51 Consult to Speech Language Pathology [GAS APPLIANCE ADJUSTER Evaluation and Treatment] [CONS] Routine - Patient Instructions Diet: Heart Healthy Diet Activity: As Tolerated Notify Provider of: Fever, Increased Pain, Nausea and/or Vomiting - Discharge Plan Home Medications: Home Meds Aspirin 81 mg PO DAILY 01/12/16 [History] Enalapril Maleate 20 mg PO BID 01/12/16 [History] Hydrochlorothiazide 25 mg PO DAILY 01/12/16 [History] Metoprolol Tartrate 50 mg PO Q12H 01/12/16 [History] Multivitamins [Tab-A-Piero] 1 tab PO DAILY 01/12/16 [History] Simvastatin [Zocor] 10 mg PO BEDTIME 01/12/16 [History] levETIRAcetam [Keppra] 500 mg PO BID 01/12/16 [History] Patient Handouts: Stroke Prevention, [id number]-[id number], Transient Ischemic Attack, [id number], Chronic Kidney Disease, [id number], How to Use a Walker Referrals: Jaxon Rojas MD [Physician] - 07/08/16 ([facility] [place] [facility]) - Discharge Summary/Plan Comment DC Time >30 min.: No Discharge Summary/Plan Comment: Admission diagnoses: #1. Altered mental status #2. Weakness #3. Acute kidney injury #4. Thrombocytopenia with hematuria Discharge diagnoses: #1. Altered mental status, improved #2. Weakness, improved #3. Acute kidney injury, resolved #4. Thrombocytopenia with hematuria, stable 81-year-old male with a past medical history of stroke is admitted with altered mental status and generalized weakness. When patient presented to the emergency room, a stroke code was called. Patient's vital signs were stable upon presentation to the ER. Head CT and chest x-ray were unremarkable. Glucose levels were within normal limits. Oxygen saturations greater than 90% on room air. Urinalysis did show large occult blood and the patient did have thrombocytopenia on CBC. BUN and creatinine were mildly elevated which with hydration during admission did return to within normal limits. His GFR and creatinine clearance also improved with gentle IV fluid hydration. Initial troponin was negative. During admission the patient's altered mental status and generalized weakness improved to the point where he was alert and oriented x3 at the time of discharge and ambulating with assistance and working with physical therapy. Apart from the altered mental status and generalized weakness no other neurological deficits were noted upon presentation to the ER where throughout admission. Patient did pass a swallow evaluation and did resume his regular diet during admission. Patient's vital signs remained stable during admission. At the time of discharge was tolerating oral intake without any nausea, vomiting or abdominal pain. He also denied any chest pain, palpitations , shortness of breath, wheezing, cough. He was voiding appropriately. Discharge plan: #1. Patient was discharged to [facility]. I spoke with Dr. Jaxon Rojas who agreed to see the patient. #2. All home medications were resumed at time of discharge. - Patient Data Vitals - Most Recent: Last Vital Signs Temp 97.8 F 07/05/16 12:00 Pulse 69 07/05/16 12:00 Resp 15 07/05/16 12:00 BP 139/73 07/05/16 12:00 Pulse Ox 99 07/05/16 12:00 Weight - Most Recent: 71 kg Med Orders - Current: Current Medications Discontinued Medications Acetaminophen (Tylenol) 650 mg PO Q4H PRN PRN Reason: Pain (Mild 1-3)/fever Artificial Tears (Refresh Plus 0.5%) 1 each E[facility] BID [facility] Artificial Tears (Refresh Plus 0.5%) 1 each EYERT Q4H PRN PRN Reason: Dry Eyes Last Admin: 07/04/16 08:17 Dose: 1 drop Aspirin (Aspirin) 81 mg PO DAILY [facility] Last Admin: 07/05/16 09:07 Dose: 81 mg Enalapril Maleate (Vasotec) 20 mg PO BID [facility] Last Admin: 07/05/16 09:11 Dose: 20 mg Enalapril Maleate (Vasotec) Confirm Administered Dose 10 mg .ROUTE .STK-MED ONE Stop: 07/03/16 08:46 Last Admin: 07/03/16 08:51 Dose: Not Given Hydrochlorothiazide (Hydrochlorothiazide) 25 mg PO DAILY [facility] Last Admin: 07/05/16 09:08 Dose: 25 mg Sodium Chloride (Normal Saline) 500 mls @ 999 mls/hr IV STAT [facility] Last Admin: 07/01/16 11:44 Dose: 999 mls/hr Sodium Chloride (Normal Saline) 1,000 mls @ 75 mls/hr IV ASDIRECTED [facility] Last Admin: 07/04/16 23:17 Dose: 75 mls/hr Levetiracetam (Keppra) 500 mg PO BID [facility] Last Admin: 07/05/16 09:10 Dose: 500 mg Metoprolol Tartrate (Lopressor) 50 mg PO Q12H [facility] Last Admin: 07/05/16 13:59 Dose: Not Given Ondansetron HCl (Zofran Odt) 4 mg PO Q4H PRN PRN Reason: nausea, able to take PO Oxycodone HCl (Oxycodone) 5 mg PO Q4H PRN PRN Reason: Pain (moderate 4-6) Pneumococcal Polyvalent Vaccine (Pneumovax 23) 0.5 ml IM .ONCE ONE Stop: 07/08/16 00:00 Temazepam (Restoril) 15 mg PO BEDTIME PRN PRN Reason: Sleep *Q Meaningful Use (DIS) - VTE *Q VTE Criteria *Q: VTE Mechanical Contraindications *Q: Confused Consciousness VTE Pharmacological Contraindications *Q: Renal Impairment - Stroke *Q Stroke Criteria *Q: - AMI *Q AMI Criteria *Q: <Se Beckwith - Last Filed: 07/08/16 15:10> Discharge Summary - Hospital Course Free Text/Narrative:: I was present with the resident during the history and exam. I discussed the case with the resident and agree with the findings and plan as documented in the resident's note - Patient Summary/Data Consults: Consultations 07/01/16 14:16 Consult to Physical Therapy [PT Evaluation and Treatment] [CONS] Routine 07/01/16 14:51 Consult to Speech Language Pathology [GAS APPLIANCE ADJUSTER Evaluation and Treatment] [CONS] Routine - Patient Data Vitals - Most Recent: Last Vital Signs Temp 36.6 C 07/05/16 12:00 Pulse 69 07/05/16 12:00 Resp 15 07/05/16 12:00 BP 139/73 07/05/16 12:00 Pulse Ox 99 07/05/16 12:00 Med Orders - Current: Current Medications Discontinued Medications Acetaminophen (Tylenol) 650 mg PO Q4H PRN PRN Reason: Pain (Mild 1-3)/fever Artificial Tears (Refresh Plus 0.5%) 1 each EYERT BID [facility] Artificial Tears (Refresh Plus 0.5%) 1 each EYERT Q4H PRN PRN Reason: Dry Eyes Last Admin: 07/04/16 08:17 Dose: 1 drop Aspirin (Aspirin) 81 mg PO DAILY [facility] Last Admin: 07/05/16 09:07 Dose: 81 mg Enalapril Maleate (Vasotec) 20 mg PO BID [facility] Last Admin: 07/05/16 09:11 Dose: 20 mg Enalapril Maleate (Vasotec) Confirm Administered Dose 10 mg .ROUTE .STK-MED ONE Stop: 07/03/16 08:46 Last Admin: 07/03/16 08:51 Dose: Not Given Hydrochlorothiazide (Hydrochlorothiazide) 25 mg PO DAILY [facility] Last Admin: 07/05/16 09:08 Dose: 25 mg Sodium Chloride (Normal Saline) 500 mls @ 999 mls/hr IV STAT [facility] Last Admin: 07/01/16 11:44 Dose: 999 mls/hr Sodium Chloride (Normal Saline) 1,000 mls @ 75 mls/hr IV ASDIRECTED [facility] Last Admin: 07/04/16 23:17 Dose: 75 mls/hr Levetiracetam (Keppra) 500 mg PO BID [facility] Last Admin: 07/05/16 09:10 Dose: 500 mg Metoprolol Tartrate (Lopressor) 50 mg PO Q12H [facility] Last Admin: 07/05/16 13:59 Dose: Not Given Ondansetron HCl (Zofran Odt) 4 mg PO Q4H PRN PRN Reason: nausea, able to take PO Oxycodone HCl (Oxycodone) 5 mg PO Q4H PRN PRN Reason: Pain (moderate 4-6) Pneumococcal Polyvalent Vaccine (Pneumovax 23) 0.5 ml IM .ONCE ONE Stop: 07/08/16 00:00 Temazepam (Restoril) 15 mg PO BEDTIME PRN PRN Reason: Sleep *Q Meaningful Use (DIS) - VTE *Q VTE Criteria *Q: - Stroke *Q Stroke Criteria *Q: - AMI *Q AMI Criteria *Q:
== END 2016-07-05 13:15 | DRG 69 ==
LOC: MW.ED 10:45 → MW.MS 13:45
PROVIDERS: ADMIT Internal Medicine; ATTEND Internal Medicine
DX: G45.9 Transient cerebral ischemic attack, unspecified (principal); I25.10 Atherosclerotic heart disease of native coronary artery without angina pectoris; E78.00 Pure hypercholesterolemia, unspecified; I10 Essential (primary) hypertension; N17.9 Acute kidney failure, unspecified; R31.9 Hematuria, unspecified; R26.81 Unsteadiness on feet; Z95.1 Presence of aortocoronary bypass graft; R53.1 Weakness; R41.82 Altered mental status, unspecified; N18.3 Chronic kidney disease, stage 3 (moderate); D69.6 Thrombocytopenia, unspecified; H04.123 Dry eye syndrome of bilateral lacrimal glands; Z86.73 Personal history of transient ischemic attack (TIA), and cerebral infarction without residual deficits; Z66 Do not resuscitate; Z79.899 Other long term (current) drug therapy; Z79.82 Long term (current) use of aspirin
CPT/HCPCS: 36415; 70450; 71010; 80053; 81001; 84484; 85025; 85610; 93005; 96360; 99285; J7040; 80048; 83735; 84100; 92610-GN; 97110-GP; 97162-GP; A9270-GY